=== PATIENT | male | born 2000 | race Caucasian/White ===

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

== ENCOUNTER → 2020-01-10 | Outpatient (CLI) | payer OTHER | LOC: RAD 13:12 | DX: Q67.6 Pectus excavatum (principal); M95.4 Acquired deformity of chest and rib ==

== ENCOUNTER → 2020-02-11 | Outpatient (CLI) | payer OTHER | LOC: LAB 09:33 | DX: R29.91 Unspecified symptoms and signs involving the musculoskeletal system (principal) ==

== ENCOUNTER → 2020-02-22 | Outpatient (CLI) | payer OTHER | LOC: LAB 09:18 | DX: R50.9 Fever, unspecified (principal); Z20.828 Contact with and (suspected) exposure to other viral communicable diseases ==